=== PATIENT | female | born 1950 | race Caucasian/White ===

== ENCOUNTER → 2016-10-20 | Outpatient (CLI) | payer MEDICARE, BC ==
[~2016-10-20] MED LIST: ACET-2267 PO; ALBU0.63 IH; ALBUTEROL INHALER IH; ATOR20TA66 PO; CALC-250 PO; DILT120C63 PO; DIPH25CA79 PO; DULO30CA3 PO; DULO60CA6 PO; FISH1CAP15 PO; HYDR-3812 PO; LEVO150T PO; METO-351 PO; METO5TAB6 PO; MONT10TA21 PO; OMEP40CA36 PO; QUET100T PO; TELM40TA3 PO; TEMA15CA6 PO
--- NOTE | 2016-10-20 16:16 | Diagnostic Imaging Report ---
INDICATION: Low back pain. EXAMINATION: Lumbar spine. FINDINGS: There are postop changes from laminectomies at L4 and L5. The vertebral body alignment is normal. There is disc space narrowing at L2-3 and L4-5 with minimal narrowing at L3-4 and L5-S1. There are no compression fractures. The posterior elements appear to be unremarkable. IMPRESSION: Degenerative disc changes throughout the lumbar spine. This is most pronounced at L4-5 where there is vacuum disc phenomena. There is no acute abnormality seen. Dictated by: Dictated on workstation # [id number]
== END ==
LOC: RAD 13:13
PROVIDERS: ATTEND Nurse Practitioner Family
DX: M51.36 Other intervertebral disc degeneration, lumbar region (principal)
CPT/HCPCS: 72100

== ENCOUNTER → 2016-11-03 | Outpatient (CLI) | payer MEDICARE, BC ==
--- NOTE | 2016-11-03 16:48 | Diagnostic Imaging Report ---
PROCEDURE: MRI lumbar spine. TECHNIQUE: Multiplanar, multisequence MRI of the lumbar spine was performed without contrast. INDICATION: Low back pain FINDINGS: There is grade 1 retrolisthesis of L3 over L4. The vertebral body heights are preserved. There is disc desiccation at multiple levels. There is no significant marrow signal seen. 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 There is evidence of prior laminectomy at the L4/5 and L5/S1 levels. The cauda equina and conus medullaris appear grossly unremarkable. At T11/12, there is a mild disc bulge associated with mild to moderate spinal canal stenosis reducing the AP dimension of the central canal to 8.6 mm. There is mild to moderate right lateral recess stenosis also at this level from a right posterior-lateral disc protrusion component. The foramina demonstrate no stenosis. There is no cord compression. T12/L1: No disc herniation. There is no spinal canal or foraminal stenosis. L1/2: There is a diffuse disc bulge and bilateral moderate facet arthropathy. No central canal stenosis and no lateral recess stenosis. No foraminal narrowing. L2/3: There is diffuse disc bulge and moderate to severe facet hypertrophy bilaterally. There is moderate central canal stenosis reducing the AP dimension of the canal to 8.2 mm and there is mild to moderate lateral recess stenosis bilaterally. The foramina demonstrate no significant stenosis. L3/4: There is a diffuse disc bulge and bilateral severe facet arthropathy. There is no central canal stenosis. There is bilateral lateral recess stenosis severe on the right and moderate to severe on the left. There is bilateral foraminal stenosis moderate on the left and moderate to severe on the right side. L4/5: There is a diffuse disc bulge and bilateral facet moderate hypertrophy. There is posterior decompression with laminectomy and no central canal stenosis. There is however bilateral lateral recess stenosis of severe degree on the right side and moderate degree on the left. The foramina demonstrate moderate to severe stenosis on the right and moderate to severe stenosis on the left. L5/S1: There is a diffuse disc bulge and bilateral moderate to severe facet arthropathy. No central canal stenosis. There is no lateral recess stenosis. The foramina demonstrate bilateral moderate stenosis. IMPRESSION: Multilevel degenerative facet and disc changes resulting in spinal canal and foraminal stenosis at multiple levels as described. Dictated by: Dictated on workstation # [id number]
== END ==
LOC: RAD 13:54
PROVIDERS: ATTEND Nurse Practitioner Family
DX: M47.817 Spondylosis without myelopathy or radiculopathy, lumbosacral region (principal); M48.07 Spinal stenosis, lumbosacral region
CPT/HCPCS: 72148

== ENCOUNTER → 2017-02-15 | Outpatient (CLI) | payer MEDICARE, BC ==
--- NOTE | 2017-02-15 20:34 | Diagnostic Imaging Report ---
EXAMINATION: Ultrasound of the neck. INDICATION: Elevated parathyroid hormone. FINDINGS: The right thyroid lobe is 3.9 x 1.6 x 1.1 cm. The left lobe is 3.3 x 1.2 x 1.1 cm. The thyroid gland is heterogeneous. There is a nodule measuring 0.7 x 1 x 1.8 cm abutting the posterior aspect of the left thyroid lobe. It appears to be inseparable from the thyroid posterior margin and could relate to an exophytic thyroid nodule. A parathyroid adenoma is not entirely excluded, however. No other discrete nodule is seen. IMPRESSION: There is a 1.8 cm hypoechoic nodule abutting the posterior margin of the left thyroid lobe. This could be an exophytic thyroid nodule or may potentially relate to a parathyroid adenoma. Evaluation with ultrasound-guided fine needle aspiration would be helpful. Dictated by: Dictated on workstation # [id number]
== END ==
LOC: RAD 14:27
PROVIDERS: ATTEND Nurse Practitioner Family
DX: E04.1 Nontoxic single thyroid nodule (principal)
CPT/HCPCS: 76536

== ENCOUNTER 2017-06-11 20:10 | Outpatient (CLI) | payer MEDICARE ==
[~2017-06-11 20:10] MED LIST changes: +ACHD5005 PO; -HYDR-3812 PO
== END 2017-06-12 06:41 | disposition home or self-care (01) ==
LOC: SLEEP 20:10
PROVIDERS: ATTEND Psychiatry & Neurology Neurology
DX: R06.83 Snoring (principal); R09.02 Hypoxemia; G47.10 Hypersomnia, unspecified; R56.9 Unspecified convulsions; Z88.0 Allergy status to penicillin; Z88.1 Allergy status to other antibiotic agents; Z79.899 Other long term (current) drug therapy
CPT/HCPCS: 95810

== ENCOUNTER → 2018-03-16 | Outpatient (CLI) | payer MEDICARE ==
[2018-03-16 15:32] LABS: ABG BASE EXCESS -0.8 MMOL/L (-2.5-2.5); ABG OXYGEN SATURATION 96 % (94-100); ABG PCO2 37 MMHG (35-45); ABG PH 7.41 (7.37-7.43); ABG PO2 81 MMHG (79-93); ABG TCO2 24.5 MMOL/L (21.0-31.0); ALLENS TEST YES-POS; INSPIRED O2 ROOM AIR; PATIENT TEMP 97.6; VENTILATOR NO
== END ==
LOC: RT 15:05
PROVIDERS: ATTEND Nurse Practitioner Family
DX: G47.00 Insomnia, unspecified (principal); G47.33 Obstructive sleep apnea (adult) (pediatric); R06.02 Shortness of breath; I34.1 Nonrheumatic mitral (valve) prolapse; R00.2 Palpitations
CPT/HCPCS: 82805; 94761

== ENCOUNTER → 2018-03-29 | Outpatient (CLI) | payer MEDICARE ==
[~2018-03-29] MED LIST changes: +CATHETER FLUSH 10 ML SYR IV PRN; +REGADENOSON 0.4 MG/5 ML SYR (LEXISCAN) IV ONE
--- NOTE | 2018-03-30 07:00 | STRESS TEST ---
DATE OF SERVICE: 03/29/2018 LEXISCAN MYOVIEW STRESS TEST REPORT Baseline heart rate is 62. Baseline blood pressure is 151/100. Baseline EKG is sinus rhythm with no ischemic changes. In summary, the patient was injected with 10.56 mCi of technetium-99 Myoview and the resting images were obtained. Then, the patient received 0.4 mg of Lexiscan followed by 29.7 mCi of technetium-99 Myoview. Throughout the test, there were no EKG changes. The resting and stress images were reviewed and compared in the short axis, horizontal long axis and vertical long axis views. Review of the images showed breast attenuation with no significant ischemia or infarction. SSS is 3, SDS 3 and TID value is mildly increased at 1.32. On the gated images, the left ventricle appeared to be small in size with normal contractility. Calculated ejection fraction is 84%. CONCLUSION: 1. The patient tolerated the Lexiscan well. 2. Breast attenuation with no significant ischemia or infarction on SPECT images. 3. TID value of 1.32 mildly increased due to the small left ventricular size. 4. Calculated ejection fraction is 84%. Job ID: [id number] DocumentID: [id number] Dictated Date: 03/30/2018 06:44:07 Seismograph Shooter Date: 03/30/2018 06:59:35 Dictated By: YENI MILLIGAN MD
== END ==
LOC: CARD 11:09
PROVIDERS: ATTEND Physician Assistant
DX: R00.2 Palpitations (principal); E78.2 Mixed hyperlipidemia; E11.9 Type 2 diabetes mellitus without complications; G47.33 Obstructive sleep apnea (adult) (pediatric)
CPT/HCPCS: 78452; 93017

== ENCOUNTER 2018-03-30 19:36 | Outpatient (CLI) | payer MEDICARE ==
[~2018-03-30 19:36] MED LIST changes: -CATHETER FLUSH 10 ML SYR IV PRN; -REGADENOSON 0.4 MG/5 ML SYR (LEXISCAN) IV ONE
== END 2018-03-31 06:25 | disposition home or self-care (01) ==
LOC: SLEEP 19:36
PROVIDERS: ATTEND Nurse Practitioner Family
DX: G47.33 Obstructive sleep apnea (adult) (pediatric) (principal); R06.02 Shortness of breath; I34.1 Nonrheumatic mitral (valve) prolapse; R00.2 Palpitations; G47.00 Insomnia, unspecified
CPT/HCPCS: 95810

== ENCOUNTER → 2018-04-17 | Outpatient (CLI) | payer MEDICARE ==
[~2018-04-17] MED LIST changes: -DILT120C63 PO; +DILT120C94 PO; +RT-ALBUTEROL SULF 2.5 MG/3 ML PRE-MIX VIAL INH ONE
--- NOTE | 2018-04-17 11:58 | Diagnostic Imaging Report ---
PROCEDURE: CT chest without contrast. TECHNIQUE: Multiple contiguous axial images were obtained through the chest without the use of intravenous contrast. INDICATION: Shortness of breath with history of COPD and asthma. COMPARISON: No prior studies are available for comparison. FINDINGS: No axillary lymphadenopathy is seen. Hilar and mediastinal evaluation is limited, but no significant abnormality is seen. No pericardial or pleural fluid is identified. Central airways appear to be patent. Pulmonary parenchymal evaluation is without evidence of an acute infiltrate. No discrete mass is seen. Several micronodules are present. Subpleural micronodules in the right upper lobe are noted, image 30. One nodule is anterior and the second is laterally located on the right each measuring approximately 2 mm. Juxtapleural nodule more cephalad adjacent to the major fissure image 24 in the right upper lobe is seen measuring 3 mm. Remainder of the lungs appears to be fairly clear. Upper abdomen is unremarkable. IMPRESSION: Essentially unremarkable noncontrast CT of the chest apart from mild right upper lobe micronodules. Follow-up CT chest in six months could be performed to confirm stability. No other significant abnormality is seen. Dictated by: Dictated on workstation # [id number]
== END ==
LOC: RT 09:39
PROVIDERS: ATTEND Nurse Practitioner Family
DX: R06.02 Shortness of breath (principal); I34.1 Nonrheumatic mitral (valve) prolapse; G47.33 Obstructive sleep apnea (adult) (pediatric); R00.2 Palpitations; G47.00 Insomnia, unspecified
CPT/HCPCS: 71250; 94060; 94726; 94729

== ENCOUNTER → 2018-04-18 | Outpatient (CLI) | payer MEDICARE ==
[~2018-04-18] MED LIST changes: -RT-ALBUTEROL SULF 2.5 MG/3 ML PRE-MIX VIAL INH ONE
== END ==
LOC: CARD 13:37
PROVIDERS: ATTEND Physician Assistant
DX: E78.2 Mixed hyperlipidemia (principal); E11.9 Type 2 diabetes mellitus without complications; G47.33 Obstructive sleep apnea (adult) (pediatric); R00.2 Palpitations; I34.0 Nonrheumatic mitral (valve) insufficiency
CPT/HCPCS: 93225; 93226; 93306

== ENCOUNTER 2018-05-10 20:48 | Outpatient (CLI) | payer MEDICARE | END 2018-05-11 06:35 | disposition home or self-care (01) | LOC: SLEEP 20:48 | PROVIDERS: ATTEND Nurse Practitioner Family | DX: G47.33 Obstructive sleep apnea (adult) (pediatric) (principal); I34.1 Nonrheumatic mitral (valve) prolapse; R91.1 Solitary pulmonary nodule; R00.2 Palpitations; R06.02 Shortness of breath | CPT/HCPCS: 95811 ==

== ENCOUNTER → 2018-10-03 | Outpatient (CLI) | payer MEDICARE ==
--- NOTE | 2018-10-03 12:19 | Diagnostic Imaging Report ---
PROCEDURE: CT chest without contrast. TECHNIQUE: Multiple contiguous axial images were obtained through the chest without the use of intravenous contrast. Auto Exposure Controls were utilized during the CT exam to meet ALARA standards for radiation dose reduction. INDICATION: Lung nodule. Findings: Comparison with 04/17/2018. A few tiny peripheral nodules. Additional nodules are seen in the right upper lobe measuring 3 mm the left. These are likely intrapulmonary lymph nodes. This mild biapical scarring. No suspicious pulmonary nodules. No edema or pneumonia. The no pleural effusion or pneumothorax. Heart size is normal. There is lipomatous hypertrophy of the septum. Aorta is normal in caliber. There is no axillary, supraclavicular or mediastinal lymphadenopathy. The views of the upper abdomen reveal changes of prior cholecystectomy. There are no suspicious osseous lesions. Impression: IMPRESSION: 1. Stable benign appearing lung nodules, no followup required. Dictated by: Dictated on workstation # [id number]
== END ==
LOC: RAD 11:32
PROVIDERS: ATTEND Nurse Practitioner Family
DX: I34.1 Nonrheumatic mitral (valve) prolapse (principal); G47.00 Insomnia, unspecified; R29.818 Other symptoms and signs involving the nervous system; G47.33 Obstructive sleep apnea (adult) (pediatric); R91.8 Other nonspecific abnormal finding of lung field
CPT/HCPCS: 71250

== ENCOUNTER → 2020-04-18 | Outpatient (CLI) | payer MEDICARE ==
[~2020-04-18] MED LIST changes: +DILT120C88 PO; -DILT120C94 PO; +OMEP40CA27 PO; -OMEP40CA36 PO; -TELM40TA3 PO; +TELM40TA6 PO
--- NOTE | 2020-04-18 14:41 | Diagnostic Imaging Report ---
PROCEDURE: CT sinuses without contrast TECHNIQUE: Multiple contiguous axial images were obtained through the sinuses without the use of intravenous contrast. Coronal and sagittal reformations were then performed. Auto Exposure Controls were utilized during the CT exam to meet ALARA standards for radiation dose reduction. INDICATION: Chronic sinusitis. COMPARISON: None available. FINDINGS: Nasal cavity: No nasal polyps are present. Osseous nasal septum is near midline without significant deviation. Paranasal sinuses: The bilateral frontal sinuses are clear. Bilateral ethmoid and sphenoidal sinuses are also clear. Maxillary sinuses are clear on both sides. Sinus drainage pathways: The bilateral sphenoethmoidal recesses are patent. Frontal recesses are clear. The bilateral ostiomeatal units are patent. Other: Orbits are normal. No space-occupying mass or hydrocephalus in the visualized aspects of the brain. IMPRESSION: No paranasal sinus disease. Dictated by: Dictated on workstation # [id number]
== END ==
LOC: RAD 13:41
PROVIDERS: ATTEND Otolaryngology Otolaryngology/Facial Plastic Surgery
DX: J32.8 Other chronic sinusitis (principal)
CPT/HCPCS: 70486